=== PATIENT | female | born 1985 | race Two or more races ===

== ENCOUNTER 2018-03-01 01:48 | Emergency (ER) | payer SELFPAY ==
[2018-03-01 02:06] VITALS: TEMP 98; O2SAT 98
[2018-03-01] MEDS ORDERED: Sodium Chloride 0.9% 1,000 ML IV ONE (02:17)
[2018-03-01] MEDS ORDERED: Sodium Chloride 0.9% 1,000 ML ONE (02:33)
[2018-03-01 02:58] LABS: BASO % 0.3 % (0.0-2.0); EOS # 0.1 K/uL (0.0-0.7); EOS % 0.7 % (0.0-4.0); HEMOGLOBIN 11.3 g/dL (11.0-16.0); LYMPH # 1.7 K/uL (1.0-4.3); LYMPH % 15.7 % (20.0-40.0); MEAN CELL VOLUME 86.1 fL (81.0-99.0); MEAN CORPUSCULAR HEMOGLOBIN 29.9 pg (27.0-31.0); MEAN CORPUSCULAR HGB CONC 34.8 g/dL (33.0-37.0); MEAN PLATELET VOLUME 6.2 fL (7.2-11.7); MONO # 0.7 K/uL (0.0-0.8); MONO % 6.4 % (0.0-10.0); NEUT # 8.2 K/uL (1.8-7.0); NEUT % 76.9 % (50.0-75.0); RBC 3.78 Mil/uL (3.80-5.20); RED CELL DISTRIBUTION WIDTH 12.6 % (11.5-14.5); WHITE BLOOD COUNT 10.6 K/uL (4.8-10.8)
[2018-03-01 03:10] LABS: ALB/GLOB RATIO 1.3 (1.0-2.1); ALBUMIN 3.9 g/dL (3.5-5.0); ALT/SGPT 60 U/L (9-52); AST/SGOT 34 U/L (14-36); BLOOD UREA NITROGEN 8 mg/dL (7-17); CALCIUM 9.3 mg/dl (8.6-10.4); GFR NON-AFRICAN AMERICAN > 60
--- NOTE | 2018-03-01 03:59 | C.PDOC ---
History Of Present Illness 32 year old female who is 9 weeks presents to the ER with a complaint of abdominal pain and vaginal bleeding intermittently for the past 4 days. Patient was seen at an OB clinic given unknown hormone pill to induce labor, she states that a day later after the second dose she began having severe pain, and bleeding and was seen at [facility] and told she still has an IUP of 9 wks with FHM. Patient presents today now with increasing bleeding, pain, nausea, and passing clots. Denies passing any tissue, fever, or chills. Time Seen by Provider: 03/01/18 02:08 Chief Complaint (Nursing): Female Genitourinary History Per: Patient History/Exam Limitations: no limitations Onset/Duration Of Symptoms: Days Current Symptoms Are (Timing): Still Present Quality Of Discomfort: Unable To Describe Associated Symptoms: Nausea, Other (Abdominal pain). denies: Fever, Chills Alleviating Factors: None Recent travel outside of the [place]: No Abnormal Vaginal Bleeding: Yes Past Medical History Reviewed: Historical Data, Nursing Documentation, Vital Signs Vital Signs: Last Vital Signs Temp 98.0 F 03/01/18 04:06 Pulse 96 H 03/01/18 04:06 Resp 14 03/01/18 04:06 BP 131/90 03/01/18 04:06 Pulse Ox 98 03/01/18 05:19 - Medical History PMH: Asthma Family History: States: Unknown Family Hx - Social History Hx Tobacco Use: No Hx Alcohol Use: Yes Hx Substance Use: No - Immunization History Hx Tetanus Toxoid Vaccination: No Hx Influenza Vaccination: No Hx Pneumococcal Vaccination: No Review Of Systems Constitutional: Negative for: Fever, Chills Respiratory: Negative for: Cough Gastrointestinal: Positive for: Nausea, Abdominal Pain Genitourinary: Positive for: Vaginal Bleeding Physical Exam - Physical Exam Appears: Non-toxic Skin: Normal Color, Warm, Dry Head: Atraumatic, Normacephalic Eye(s): bilateral: Normal Inspection Oral Mucosa: Moist Chest: Symmetrical, No Tenderness Cardiovascular: Rhythm Regular Respiratory: Normal Breath Sounds, No Rales, No Rhonchi, No Wheezing Gastrointestinal/Abdominal: Soft, Tenderness (Suprapubic), No Guarding, No Rebound Pelvic: Vaginal Bleeding (active mild), No Cervical Motion Tenderness, No Adnexal Tenderness, No Mass, No Other (Clots, Tissue) Extremity: Normal ROM (x4) Neurological/Psych: Oriented x3, Normal Speech ED Course And Treatment - Laboratory Results Result Diagrams: 03/01/18 02:52 03/01/18 02:52 O2 Sat by Pulse Oximetry: 98 (Room air) Pulse Ox Interpretation: Normal - CT Scan/US US Other Rad Studies (CT/US): Read By Radiologist, Radiology Report Reviewed CT/US Interpretation: EXAM: US First Trimester, Transabdominal. US , Transvaginal. CLINICAL HISTORY: 32 years old, female; Pain and signs and symptoms; Lmp or gestational age. (in weeks): 12/20/2017; Antepartum complications; Bleeding; complicated by abdominal or. pelvic pain; Lower; First trimester; Gestational age or lmp: 12/20/2017; ; Additional info: Abd. pain, vag bleed. TECHNIQUE: Real-time transabdominal and transvaginal obstetrical ultrasound of the maternal. pelvis and a first trimester with image documentation. Transvaginal imaging was used for. better evaluation of the fetus and adnexa. COMPARISON: No relevant prior studies available. FINDINGS: Gestation: Intrauterine gestational sac and yolk sac noted. pole is lower uterine segment. No. cardiac activity identified. Estimated gestational age based on CRL measurement of 2.41 cm is 9 weeks 1 day. Placenta/amniotic fluid: Cannot be adequately evaluated due to the early gestational age. Uterus/cervix: Cervix is closed measuring 1.53 cm in length. No myometrial mass. Ovaries: Unremarkable. No mass. Free fluid: No free fluid. IMPRESSION: Intrauterine gestational sac and yolk sac noted. pole is lower uterine segment. No. cardiac activity identified. Findings consistent with demise and probable spontaneous. in progress. Ultrasound followup could be obtained if indicated. Progress Note: Blood work and US ordered. IV fluids, tylenol, and zofran administered. Case discussed with Dr. Booth, OB hot iron worker, who agrees that symptoms and findings are consistent with signs of miscarriage which is of normal progression and states patient can be discharged with pain medication and follow up with her OB. Discussed return precautions with patient, if severe bleeding, dizziness, fainting, severe bleeding weakness, or pain return to the ER. Reassessment Condition: Improved Disposition Counseled Patient/Family Regarding: Diagnosis, Need For Followup, Rx Given - Disposition Referrals: Your OB office, Private doctor [Other] Disposition: HOME/ ROUTINE Disposition Time: 05:08 Condition: STABLE Additional Instructions: Please follow up with [employer] Take motrin for pain Return to ER if severe bleeding, dizziness, fainting, weakness or worse Prescriptions: Ibuprofen [Motrin] 600 mg PO Q6H #20 tab Ondansetron ODT [Zofran ODT] 1 odt PO BID PRN #6 odt PRN Reason: Nausea/Vomiting Instructions: Miscarriage (DC) Forms: Work/School/Gym Excuse, [employer] (Mexican) - Clinical Impression Clinical Impression: demise - PA / REGISTRATION REPRESENTATIVE / Resident Statement MD/DO has reviewed & agrees with the documentation as recorded. - Scribe Statement The provider has reviewed the documentation as recorded by the Scribanaid Finch All medical record entries made by the Sedaibanaid were at my direction and personally dictated by me. I have reviewed the chart and agree that the record accurately reflects my personal performance of the history, physical exam, medical decision making, and the department course for this patient. I have also personally directed, reviewed, and agree with the discharge instructions and disposition.
[2018-03-01 04:07] VITALS: BP 131/90; PULSE 96; RESP 14
[2018-03-01] MEDS ORDERED: Potassium Chloride 20 mEq ER Tab PO STA (04:37)
[2018-03-01] MEDS ORDERED: Potassium Chloride 20 mEq ER Tab PO ONE (04:51)
--- NOTE | 2018-03-01 18:05 | US ---
Date of service: 03/01/2018 PROCEDURE: Pelvic ultrasound 03/01/2018. HISTORY: Abdominal pain, vag bleed COMPARISON: No prior study available for comparison TECHNIQUE: Transabdominal/transvaginal sonographic evaluation of the pelvis performed. No prior study available for comparison. FINDINGS: Uterus anteverted measuring approximately 12.6 plans 8.0 x 8.7 cm. Cervix measures 1.5 cm. There appears to be an intrauterine gestational sac. Gestational sac: MSD = 4.1 cm = 9 weeks 4 days Yolk sac: Not definitively seen pole: CRL = 2.41 cm = 9 weeks 1 day Heart motion: No heart motion detected. Findings likely represent demise of with spontaneous progress. Clinical correlation recommended. Right ovary measures approximately 3.4 x 2.1 x 2.1 cm. Left ovary measures 3.6 x 2.2 x 3.4 cm and contains a cyst measuring 1.8 x 1.0 x 1.9 cm. Both ovaries exhibit arterial flow. IMPRESSION: Findings most likely represent demise and evolving spontaneous in progress. Followup serial serum beta HCG and serial ultrasound recommended to completion. Note that concordant on report provided by overnight radiology service
== END 2018-03-01 05:20 | disposition home or self-care (01) ==
LOC: C.ER 01:48
DX: O02.1 Missed abortion (principal)
CPT/HCPCS: 76805; 76817; 80053; 84702; 85025; 86850; 86900; 96361; 96374; 96375; 99285; J2405; J7030